=== PATIENT | female | born 1930 | race Caucasian/White ===

== ENCOUNTER 2018-03-18 17:27 | Inpatient (IN) | payer OTHER ==
--- NOTE | 2018-03-18 17:33 | EDPHY ---
H & P Time Seen by Provider: 03/18/18 17:32 HPI/ROS: CHIEF COMPLAINT: Falling and can't walk, bilateral knee pain HISTORY OF PRESENT ILLNESS: Patient was brought in by EMS because of inability to stand or walk. She usually uses a walker but was noted by her caregiver to be less steady today and actually fell twice a first-time landing on her knees, and the 2nd time landing with her chest on her walker. On arrival the patient does not have any complaints except for pain in both knees. She says this happened after the 1st fall, is bilateral, worse with standing or pressure on the knee. Does not radiate. Almost gone or very mild at rest but severe with trying to walk. REVIEW OF SYSTEMS: Eye: no change in vision ENT: no sore throat Cardiac: no chest pain or syncope Pulmonary: no cough or SOB Abdomen: no vomiting, diarrhea, abdominal pain, but decreased oral intake today because she just does not have any appetite. Musculoskeletal: No back or neck pain Skin: Chronic venous stasis changes both lower extremities Neuro: no headache Constitutional: no fever : no urinary symptoms A comprehensive 10 point review of systems is otherwise negative aside from elements mentioned in the history of present illness. PAST MEDICAL HISTORY: Hypertension, per caregiver Social history: Assisted living with caregiver General Appearance: Alert and conversant, cooperative. Eyes: No scleral icterus. ENT, Mouth: Dry mucous membranes Respiratory: Normal respiratory effort, breath sounds equal, lungs are clear to auscultation. No chest wall tenderness. Cardiovascular: Regular rate and rhythm. Gastrointestinal: Abdomen is soft and non tender. Neurological: Alert, face symmetric, normal motor and sensory in extremities. Speech fluent, she does think it is 2087, she knows her name and date. Skin: Bilateral venous stasis changes. Musculoskeletal: No cervical thoracic or lumbar spine tenderness. Normal range of motion of both hips and ankles, and both knees but tenderness to patella palpation on both sides. Psychiatric: Not agitated. Emergency Department course/MDM: Plan for head CT, EKG, chest x-ray and urinalysis. Bilateral knee x-rays. Likely needs admission since she can't walk and is falling. 180: new low density in left parietal lobe, probable subacute infarct, new since 2010, [place]. 1858: Bilateral knee x-ray shows severe osteoarthritis otherwise negative, UTI and subacute ischemic stroke discussed by me in person with a caregiver at this time. Ceftriaxone 1 g IV, admission on monitor for stroke workup. 2010: Creatinine 1.4, acute kidney injury, normal saline 1 L IV ordered. Constitutional: Initial Vital Signs Temperature (C) 37.2 C 03/18/18 17:30 Heart Rate 87 03/18/18 17:30 Respiratory Rate 18 03/18/18 17:30 Blood Pressure 96/72 L 03/18/18 17:30 O2 Sat (%) 92 03/18/18 17:30 O2 Delivery Mode Room Air O2 (L/minute) 92 Allergies/Adverse Reactions: bacitracin [Bacitracin] Allergy (Intermediate, Verified 11/20/10 10:29) RASH/SKIN DOESN'T HEAL morphine [Morphine] Allergy (Unknown, Verified 11/20/10 10:29) SKIN "CRAWLS" Home Medications: Medication Instructions Recorded Bimatoprost 0.01% [Lumigan 0.01% 1 drop EACHEYE HS 03/18/18 (*)] Cholecalciferol Vit D3 [Vitamin D3 5,000 units PO DAILY 03/18/18 (*)] Furosemide [Lasix 20 MG (*)] 40 mg PO DAILY 03/18/18 Herbals/Supplements -Info Only 1 dose PO DAILY 03/18/18 Potassium Chloride [Klor-Con 10] 20 meq PO DAILY 03/18/18 Valsartan [Diovan (*)] 80 mg PO BID 03/18/18 Medical Decision Making - Diagnostics EKG Interpretation: 12-lead EKG interpreted by me; official reading is in trace master. My interpretation is sinus rhythm with LVH and inferior Q-waves noted. Probable old inferior infarct. Imaging Results: Imaging Impressions Knee X-Ray 03/18/18 17:43 Impression: 1. No acute osseous abnormality seen associated with the right and left knees. 2. Marked degenerative joint disease medial knee joint bilaterally with moderate degenerative joint disease at the patellofemoral joint bilaterally. 3. Small effusion suprapatellar bursa bilaterally. Knee X-Ray 03/18/18 17:43 Impression: 1. No acute osseous abnormality seen associated with the right and left knees. 2. Marked degenerative joint disease medial knee joint bilaterally with moderate degenerative joint disease at the patellofemoral joint bilaterally. 3. Small effusion suprapatellar bursa bilaterally. Chest X-Ray 03/18/18 17:44 Impression: 1. No active cardiopulmonary disease appreciated. 2. Hyperexpanded lungs suggestive of underlying COPD. 3. Stable marked compression of T8. Head CT 03/18/18 17:44 Impression: 1. Subacute/chronic left posterior parietal area of developing encephalomalacia consistent with a white matter infarction. 2. Otherwise stable elderly head CT. Results called to Dr. Yvon Rubi at 6:08 PM General information for patients regarding this examination can be found at [email or web address] If you have questions or comments about this report, please contact me at (hospital) or [phone] (cell). Imaging: Discussed imaging studies w/ housecalls nurse Radiologist Differential Diagnosis: Differential for weakness considered including but not limited to stroke, ACS, UTI, other metabolic. Consult/Admit Bed Type: [facility], [facility] 1940 - Data Points Laboratory Results: Laboratory Results 03/18/18 18:45 03/18/18 18:45 03/18/18 03/18/18 03/18/18 18:45 18:45 18:45 WBC 11.48 10^3/uL H 10^3/uL (3.80-9.50) RBC 5.14 10^6/uL 10^6/uL (4.18-5.33) Hgb 16.0 g/dL g/dL (12.6-16.3) Hct 47.2 % H % (38.0-47.0) MCV 91.8 fL fL (81.5-99.8) MCH 31.1 pg pg (27.9-34.1) MCHC 33.9 g/dL g/dL (32.4-36.7) RDW 13.6 % % (11.5-15.2) Plt Count 186 10^3/uL 10^3/uL (150-400) MPV 10.8 fL fL (8.7-11.7) Neut % (Auto) 82.7 % H % (39.3-74.2) Lymph % (Auto) 7.4 % L % (15.0-45.0) [place] % (Auto) 9.3 % % (4.5-13.0) Eos % (Auto) 0.1 % L % (0.6-7.6) Baso % (Auto) 0.2 % L % (0.3-1.7) Nucleat RBC Rel Count 0.0 % % (0.0-0.2) Absolute Neuts (auto) 9.49 10^3/uL H 10^3/uL (1.70-6.50) Absolute Lymphs (auto) 0.85 10^3/uL L 10^3/uL (1.00-3.00) Absolute Monos (auto) 1.07 10^3/uL H 10^3/uL (0.30-0.80) Absolute Eos (auto) 0.01 10^3/uL L 10^3/uL (0.03-0.40) Absolute Basos (auto) 0.02 10^3/uL 10^3/uL (0.02-0.10) Absolute Nucleated RBC 0.00 10^3/uL 10^3/uL (0-0.01) Immature Gran % 0.3 % % (0.0-1.1) Immature Gran # 0.04 10^3/uL 10^3/uL (0.00-0.10) Sodium 136 mEq/L mEq/L (135-145) Potassium 3.2 mEq/L L mEq/L (3.3-5.0) Chloride 95 mEq/L L mEq/L (97-110) Carbon Dioxide 24 mEq/l mEq/l (22-31) Anion Gap 17 mEq/L H mEq/L (8-16) BUN 41 mg/dL H mg/dL (7-23) Creatinine 1.4 mg/dL H mg/dL (0.6-1.0) Estimated GFR 36 Glucose 154 mg/dL H mg/dL (70-100) Calcium 9.0 mg/dL mg/dL (8.5-10.4) Procalcitonin 2.63 ng/mL H ng/mL (0.02-0.10) Urine Color Urine Appearance Urine pH Ur Specific [place] Urine Protein Urine Ketones Urine Blood Urine Nitrate Urine Bilirubin Urine Urobilinogen Ur Leukocyte Esterase Urine RBC Urine WBC Ur Epithelial Cells Urine Bacteria Urine Mucus Urine Glucose 03/18/18 18:15 WBC RBC Hgb Hct MCV MCH MCHC RDW Plt Count MPV Neut % (Auto) Lymph % (Auto) [place] % (Auto) Eos % (Auto) Baso % (Auto) Nucleat RBC Rel Count Absolute Neuts (auto) Absolute Lymphs (auto) Absolute Monos (auto) Absolute Eos (auto) Absolute Basos (auto) Absolute Nucleated RBC Immature Gran % Immature Gran # Sodium Potassium Chloride Carbon Dioxide Anion Gap BUN Creatinine Estimated GFR Glucose Calcium Procalcitonin Urine Color ARMANDO Urine Appearance TURBID Urine pH 5.0 (5.0-7.5) Ur Specific [place] 1.015 (1.002-1.030) Urine Protein 2+ H (NEGATIVE) Urine Ketones NEGATIVE (NEGATIVE) Urine Blood 2+ H (NEGATIVE) Urine Nitrate NEGATIVE (NEGATIVE) Urine Bilirubin NEGATIVE (NEGATIVE) Urine Urobilinogen 2.0 EU H EU (0.2-1.0) Ur Leukocyte Esterase 3+ H (NEGATIVE) Urine RBC 50-182 /hpf H /hpf (0-3) Urine WBC 50-182 /hpf H /hpf (0-3) Ur Epithelial Cells 2+ /lpf H /lpf (NONE-1+) Urine Bacteria 4+ /hpf H /hpf (NONE SEEN) Urine Mucus 1+ /lpf /lpf (NONE-1+) Urine Glucose NEGATIVE (NEGATIVE) Medications Given: Acetaminophen (Tylenol 650/20.3ml Oral Liquid) 650 mg PO Q4 PRN PRN Reason: Pain, Mild/Fever, Can Take PO Stop: 09/15/18 03:44 Last Admin: 03/19/18 03:53 Dose: 650 mg Bimatoprost (Lumigan 0.01%) 1 drops EACHEYE HS [facility] Stop: 09/14/18 20:59 Last Admin: 03/19/18 00:45 Dose: Not Given Heparin Sodium (Porcine) (Heparin Sc Injection) 5,000 unit SC Q8HRS JUAN Stop: 09/14/18 21:59 Last Admin: 03/19/18 00:43 Dose: 5,000 unit Potassium Chloride/Sodium Chloride (Ns W/ 20 Kcl/L) 1,000 mls @ 100 mls/hr IV CONT JUAN Stop: 09/14/18 21:44 Last Admin: 03/19/18 03:41 Dose: 1,000 mls Discontinued Medications Ceftriaxone Sodium/Dextrose (Rocephin 1 Gm (Premix)) 50 mls @ 100 mls/hr IV EDNOW ONE PRN Reason: Protocol Stop: 03/18/18 19:27 Last Admin: 03/18/18 19:10 Dose: 50 mls Sodium Chloride (Ns) 1,000 mls @ 0 mls/hr IV EDNOW ONE; Wide Open PRN Reason: Protocol Stop: 03/18/18 20:10 Last Admin: 03/18/18 20:15 Dose: 1,000 mls Sodium Chloride (Ns) 1,000 mls @ 3,000 mls/hr IV ONCE ONE Stop: 03/18/18 22:03 Last Admin: 03/19/18 00:14 Dose: 1,000 mls Departure - Departure Disposition: [facility] Inpatient Acute Clinical Impression: Subacute left parietal ischemic stroke, bilateral knee contusions, Acute kidney injury UTI (urinary tract infection) Qualifiers: Urinary tract infection type: acute cystitis Hematuria presence: with hematuria Qualified Code(s): N30.01 - Acute cystitis with hematuria Condition: Fair
--- NOTE | 2018-03-18 18:52 | CPEKG ---
Heart Rate: 82 RR Interval: 732 P-R Interval: 192 QRSD Interval: 92 QT Interval: 396 QTC Interval: 463 P Greer: 28 QRS Greer: -22 T Wave Greer: 125 EKG Severity - ABNORMAL ECG - EKG Impression: SINUS RHYTHM EKG Impression: PROBABLE LEFT ATRIAL ABNORMALITY EKG Impression: PROBABLE LEFT VENTRICULAR HYPERTROPHY EKG Impression: PROBABLE INFERIOR INFARCT, OLD EKG Impression: LATERAL LEADS ARE ALSO INVOLVED Electronically Signed By: Yvon Rubi 18-Mar-2018 18:58:02
[2018-03-18 18:59] LABS: PLATELET COUNT 186 10^3/uL (150-400)
[2018-03-18] MEDS ORDERED: NS 1,000 ML IV ONE ×2 (20:09→21:44)
[2018-03-18] MEDS ORDERED: ACETAMINOPHEN 325 MG TAB PO PRN (21:45)
[2018-03-18] MEDS ORDERED: NS W/ 20 KCl/L 1,000 ML IV SCH (21:45)
[2018-03-18] MEDS ORDERED: ONDANSETRON DISINTEGRATING 4 MG TAB PO PRN (21:45)
[2018-03-18] MEDS ORDERED: ONDANSETRON 4 MG/2 ML VIAL IVP PRN (21:45)
[2018-03-18] MEDS ORDERED: PROTOCOL POTASSIUM 1 DOSE MISC PRN (21:47)
[2018-03-18] MEDS ORDERED: PROTOCOL MAGNESIUM 1 DOSE IV PRN (21:47)
--- NOTE | 2018-03-18 22:13 | PDGENHP ---
History and Physical - Chief Complaint weakness - History of Present Illness 87 o female c/o weakness so profound that she cant stand or walk. She usually uses a walker but was noted by her caregiver to be less steady today and actually fell twice a first-time landing on her knees, and the 2nd time landing with her chest on her walker. In the ER she is noted to have bacteriuria, hypotension, and SRIDEVI. She was given NS + Rocephin. She is feeling better. BP is better. Lactic acid nor PC were checked. She denies resp or cv symptoms. She has no focal weakness. A CT Head was checked and its consistent with subacute vs chronic Left Parietal area encephalomalacia. PAST MEDICAL HISTORY: Hypertension, per caregiver Social history: Assisted living with caregiver History Information - Allergies/Home Medication List Allergies/Adverse Reactions: bacitracin [Bacitracin] Allergy (Intermediate, Verified 11/20/10 10:29) RASH/SKIN DOESN'T HEAL morphine [Morphine] Allergy (Unknown, Verified 11/20/10 10:29) SKIN "CRAWLS" Home Medications: Bimatoprost 0.01% [Lumigan 0.01% (*)] 1 drop EACHEYE HS 03/18/18 [Last Taken Unknown] Cholecalciferol Vit D3 [Vitamin D3 (*)] 5,000 units PO DAILY 03/18/18 [Last Taken Unknown] Furosemide [Lasix 20 MG (*)] 40 mg PO DAILY 03/18/18 [Last Taken Unknown] Herbals/Supplements -Info Only 1 dose PO DAILY 03/18/18 [Last Taken Unknown] Potassium Chloride [Klor-Con 10] 20 meq PO DAILY 03/18/18 [Last Taken Unknown] Valsartan [Diovan (*)] 80 mg PO BID 03/18/18 [Last Taken Unknown] I have personally reviewed and updated: medical history, social history - Social History Smoking Status: Never smoked Review of Systems Review of Systems: ROS: 10pt was reviewed & negative except for what was stated in HPI & below Physical Exam Physical Exam: Temp Pulse Resp BP Pulse Ox 36.7 C 68 17 127/63 H 96 03/18/18 21:14 03/18/18 21:14 03/18/18 21:14 03/18/18 21:14 03/18/18 21:14 Constitutional: not in pain Eyes: PERRL Ears, Nose, Mouth, Throat: dry mucous membranes Cardiovascular: regular rate and rhythym, No edema Respiratory: no respiratory distress, no rales or rhonchi, clear to auscultation Gastrointestinal: normoactive bowel sounds Skin: warm Musculoskeletal: generalized weakness Neurologic: AAOx3 Psychiatric: interacting appropriately, not anxious, not encephalopathic Lymph, Heme, Immunologic: No petechiae Lab Data & Imaging Review 03/18/18 18:45 03/18/18 18:45 WBC 11.48 10^3/uL (3.80-9.50) H 03/18/18 18:45 RBC 5.14 10^6/uL (4.18-5.33) 03/18/18 18:45 Hgb 16.0 g/dL (12.6-16.3) 03/18/18 18:45 Hct 47.2 % (38.0-47.0) H 03/18/18 18:45 MCV 91.8 fL (81.5-99.8) 03/18/18 18:45 MCH 31.1 pg (27.9-34.1) 03/18/18 18:45 MCHC 33.9 g/dL (32.4-36.7) 03/18/18 18:45 RDW 13.6 % (11.5-15.2) 03/18/18 18:45 Plt Count 186 10^3/uL (150-400) 03/18/18 18:45 MPV 10.8 fL (8.7-11.7) 03/18/18 18:45 Neut % (Auto) 82.7 % (39.3-74.2) H 03/18/18 18:45 Lymph % (Auto) 7.4 % (15.0-45.0) L 03/18/18 18:45 [place] % (Auto) 9.3 % (4.5-13.0) 03/18/18 18:45 Eos % (Auto) 0.1 % (0.6-7.6) L 03/18/18 18:45 Baso % (Auto) 0.2 % (0.3-1.7) L 03/18/18 18:45 Nucleat RBC Rel Count 0.0 % (0.0-0.2) 03/18/18 18:45 Absolute Neuts (auto) 9.49 10^3/uL (1.70-6.50) H 03/18/18 18:45 Absolute Lymphs (auto) 0.85 10^3/uL (1.00-3.00) L 03/18/18 18:45 Absolute Monos (auto) 1.07 10^3/uL (0.30-0.80) H 03/18/18 18:45 Absolute Eos (auto) 0.01 10^3/uL (0.03-0.40) L 03/18/18 18:45 Absolute Basos (auto) 0.02 10^3/uL (0.02-0.10) 03/18/18 18:45 Absolute Nucleated RBC 0.00 10^3/uL (0-0.01) 03/18/18 18:45 Immature Gran % 0.3 % (0.0-1.1) 03/18/18 18:45 Immature Gran # 0.04 10^3/uL (0.00-0.10) 03/18/18 18:45 VBG Lactic Acid 1.5 mmol/L (0.7-2.1) 03/18/18 21:24 Sodium 136 mEq/L (135-145) 03/18/18 18:45 Potassium 3.2 mEq/L (3.3-5.0) L 03/18/18 18:45 Chloride 95 mEq/L (97-110) L 03/18/18 18:45 Carbon Dioxide 24 mEq/l (22-31) 03/18/18 18:45 Anion Gap 17 mEq/L (8-16) H 03/18/18 18:45 BUN 41 mg/dL (7-23) H 03/18/18 18:45 Creatinine 1.4 mg/dL (0.6-1.0) H 03/18/18 18:45 Estimated GFR 36 03/18/18 18:45 Glucose 154 mg/dL (70-100) H 03/18/18 18:45 Calcium 9.0 mg/dL (8.5-10.4) 03/18/18 18:45 Procalcitonin 2.63 ng/mL (0.02-0.10) H 03/18/18 18:45 Urine Color ARMANDO 03/18/18 18:15 Urine Appearance TURBID 03/18/18 18:15 Urine pH 5.0 (5.0-7.5) 03/18/18 18:15 Ur Specific [place] 1.015 (1.002-1.030) 03/18/18 18:15 Urine Protein 2+ (NEGATIVE) H 03/18/18 18:15 Urine Ketones NEGATIVE (NEGATIVE) 03/18/18 18:15 Urine Blood 2+ (NEGATIVE) H 03/18/18 18:15 Urine Nitrate NEGATIVE (NEGATIVE) 03/18/18 18:15 Urine Bilirubin NEGATIVE (NEGATIVE) 03/18/18 18:15 Urine Urobilinogen 2.0 EU (0.2-1.0) H 03/18/18 18:15 Ur Leukocyte Esterase 3+ (NEGATIVE) H 03/18/18 18:15 Urine RBC 50-182 /hpf (0-3) H 03/18/18 18:15 Urine WBC 50-182 /hpf (0-3) H 03/18/18 18:15 Ur Epithelial Cells 2+ /lpf (NONE-1+) H 03/18/18 18:15 Urine Bacteria 4+ /hpf (NONE SEEN) H 03/18/18 18:15 Urine Mucus 1+ /lpf (NONE-1+) 03/18/18 18:15 Urine Glucose NEGATIVE (NEGATIVE) 03/18/18 18:15 Assessment & Plan Assessment: #Possible sepsis/early sepsis, urinary source, given Leukocytosis, hypotension, and acute kidney injury #UTI #Hypokalemia #Hypotension #Acute Kidney Injury #Hx of HTN #AMS, acute encephalopathy, resolving #?subacute vs chronic encephalomalacia. Per the ED, Neuro consulted for possible acute stroke. Will await reccs, but her mentations and weakness are likely the result of infection and dehydration Plan: -more IVF now -check PC and lactic acid -await urine culture -check blood cultures, these will be done after abx have been administered -cont Rocephin -PT -replace K total critical care time in this patient with hypotension likely due to sepsis and kidney injury requiring further IV fluids is 55 minutes
[2018-03-19] MEDS: HEPARIN 5,000 UNIT/0.5 ML INJ SC SCH ×4 (00:43→22:02)
[2018-03-19] MEDS: BIMATOPROST 0.01% 2.5 ML OPHT.BTL EACHEYE SCH ×2 (00:45→22:06)
[2018-03-19] MEDS: ACETAMINOPHEN 650 MG/20.3 ML UDCUP PO PRN ×2 (03:53→10:50)
[2018-03-19 05:30] LABS: PLATELET COUNT 141 10^3/uL (150-400)
[2018-03-19] MEDS ORDERED: POTASSIUM CL 10 MEQ TAB PO ONE ×2 (08:17→10:45)
--- NOTE | 2018-03-19 09:45 | HOSPPROG ---
Hospitalist Progress Note Assessment/Plan: #Possible sepsis/early sepsis, urinary source, given Leukocytosis, hypotension, and acute kidney injury on presentation -resolving -decrease IVF today -awaiting cultures #UTI -awaiting cultures -cont Rocephin #Hypokalemia -replace per protocol #Hypotension, resolved #Acute Kidney Injury, resolved with IVF #Hx of HTN, hold BP meds today #AMS, acute encephalopathy, resolved -at baseline #?subacute silent stroke vs chronic encephalomalacia. -start baby aspirin -telemetry -pt to decide on whether they want additional testing -Neuro following, thanks #Venous insufficiency -compression stocking -f/u as outpatient PT/OT Heparin for DVT proph Keep inpatient today Hopeful d/c soon Subjective: no cp or sob. feels better. mentation back to baseline. Objective: Vital Signs Temp Pulse Resp BP Pulse Ox 36.7 C 71 16 129/63 H 96 03/19/18 08:00 03/19/18 08:00 03/19/18 08:00 03/19/18 08:00 03/19/18 08:00 Laboratory Results 03/19/18 04:28 03/19/18 04:28 03/18/18 03/19/18 03/20/18 05:59 05:59 05:59 Intake Total 1550 Output Total 450 300 Balance 1100 -300 - Physical Exam Constitutional: no apparent distress Eyes: PERRL, EOMI Ears, Nose, Mouth, Throat: dry mucous membranes Cardiovascular: regular rate and rhythym, No edema Respiratory: no respiratory distress, no rales or rhonchi, clear to auscultation Gastrointestinal: normoactive bowel sounds Skin: warm Musculoskeletal: generalized weakness Neurologic: AAOx3 Psychiatric: interacting appropriately, not anxious, not encephalopathic Lymph, Heme, Immunologic: No petechiae ICD10 Worksheet Patient Problems: Problems Problem Status Onset Acute kidney injury Acute UTI (urinary tract infection) Acute
--- NOTE | 2018-03-19 10:30 | GCON ---
[f rep st] CONSULTATION NEUROLOGY CONSULT. REFERRING PHYSICIAN: Kwabena Reveles MD CHIEF COMPLAINT: Abnormal head CT. HISTORY OF PRESENT ILLNESS: The patient is a very pleasant 87-year-old lady who developed significant generalized weakness and fatigue over the last 2 or 3 days with loss of balance and falling. She came to the emergency department and was found to have a significant UTI with acute kidney injury. She received fluids and antibiotics and is improving now. In the course of this workup, she had a head CT which showed a chronic versus subacute infarct in the left parietal white matter. This is new since her previous and most recent head CT in 2010, 7 years ago. She has had no symptoms referable to this stroke. Specifically, no right-sided numbness, weakness, neglect, or other focal symptoms. She has a nonfocal exam now. For past medical history, social history, home medications, allergies, see Dr. Reveles's H and P. PHYSICAL EXAMINATION: VITAL SIGNS: 129/63, temperature 36.7, respirations 16. GENERAL: Generally the patient is awake and alert. No acute distress. NEURO : She is lucid. She has no aphasia. Cranial nerve exam normal. Facial strength and sensation. Motor exam she has normal strength and tone throughout. No focal weakness. Sensory exam normal light touch in all 4 extremities, no sensory extinction. Coordination is unremarkable in the upper extremities. IMPRESSION AND PLAN: 1. Abnormal head CT. 2. Urinary tract infection. The patient's head CT shows a chronic versus subacute left parietal white matter infarction. She has had no symptoms referable to this imaging finding. Therefore, this could be considered a silent cerebral infarction. The age is indeterminate. We had a long discussion this morning with the patient and her daughter, Sandy, regarding the head CT finding and the implications. Specifically, we discussed that she appears to have had a left hemisphere stroke at some point in the last weeks to months perhaps. She has had no symptoms referable to this event. We discussed the patient's philosophy overall health status and light of what kind of workup that we had done. Specifically, I discussed that the standard approach would be an echocardiogram, carotid imaging and prolonged EKG monitoring to screen for paroxysmal atrial fibrillation. We also discussed that the actionable treatments from these testings are typically possible carotid endarterectomy if there is significant left ICA stenosis or oral anticoagulation, if she had atrial fibrillation, for example. This event occurred while not on any anti-platelet therapy. Therefore, I have recommended at the minimum, aspirin 81 mg daily. We discussed potential risks, benefits, and alternatives of antiplatelet therapy. I also offered the above testing to workup the stroke as described. The patient is not sure if she wants to pursue with any testing as she is not sure she would ever want to have a carotid endarterectomy or oral anticoagulation. They asked for more time to think about testing or not. This is reasonable. They will let their hospitalist now before discharge whether they would like to pursue testing which would be echocardiogram, carotid ultrasound, an outpatient 30 day event monitor with Cardiology. She has agreed to go on aspirin in any case. If they pursue tests and there are any questions or abnormal findings, please contact Neurology service for further recommendations. Otherwise, we will continue to follow up p.r.n. I also offered to see them as an outpatient if they wish to have more time to discuss testing or not. They will consider all these options. They were also counseled at great length regarding the risks, benefits and alternatives of not pursuing testing now - including the risk of recurrent stroke with the associated morbidity and mortality. Seventy minutes floor time reviewing previous and current inpatient records, direct counseling with the patient and coordination of care. /[id number]/MODL MTDD
--- NOTE | 2018-03-19 10:52 | PDMN ---
Medical Necessity Medical necessity: Pt meets IP criteria per MD; est los >2 mn for eval/tx of profound weakness w/inability to stand or walk, falls, leukocytosis, hypokalemia , hypotension, acute kidney injury, UTI & encephalopathy; r/o sepsis; requiring further workup/monitoring, IVFs, IV abx & therapy; comorbid advanced age & HTN; per H&P & order 03/18/18
[2018-03-19] MEDS: ASPIRIN 81 MG CHEWABLE TAB PO SCH (10:55)
[2018-03-19] MEDS: CHOLECALCIFEROL VIT D3 2,000 UNITS TAB/CAP PO SCH (10:59)
[2018-03-19] MEDS ORDERED: POTASSIUM CL 20 MEQ/15 ML UDCUP PO ONE ×2 (11:00→11:45)
[2018-03-19] MEDS ORDERED: FUROSEMIDE 20 MG/2 ML VIAL IV ONE ×2 (14:15→16:30)
--- NOTE | 2018-03-19 14:49 | ASMTCMCOM ---
CM Note CM Note Notes: Pt in for UTI with acute kidney injury, knee contusions and found to have subacute ischemic stroke. Neurology consulting, pt and family deciding if they want stroke workup. Pt resides at [facility] with private caregivers. PT rec SNF. Pt wants to go to [facility], her daughter is reaching out to staff about bed availability. This CM also sent FM a SNF referral in [employer] and left a voicemail for Cheryl in admissions to see if there will be bed availability. CM to follow. Date Signed: 03/19/2018 02:48 PM Electronically Signed By:SONIDO Fonseca
--- NOTE | 2018-03-19 16:39 | ASMTCMCOM ---
CM Note CM Note Notes: Cheryl at [facility] report they are very tight on beds and will not know if they will have a bed for pt until Thursday. Updated pt and dghtr [facility]. [facility] spoke with [facility] staff Kwan who recommend (if no health care bed available) home with [facility] until there is a health care bed available. Date Signed: 03/19/2018 04:38 PM Electronically Signed By:SONIDO Fonseca
[2018-03-19] MEDS ORDERED: hydrALAZINE 20 MG/ML VIAL IVP PRN (22:12)
[2018-03-19] MEDS ORDERED: POTASSIUM CL 20 MEQ TAB PO ONE (22:59)
[2018-03-20] MEDS: HEPARIN 5,000 UNIT/0.5 ML INJ SC SCH ×3 (05:14→22:05)
[2018-03-20] MEDS ORDERED: POTASSIUM CL 10 MEQ TAB PO ONE ×2 (07:47→20:25)
[2018-03-20] MEDS: ASPIRIN 81 MG CHEWABLE TAB PO SCH (08:42)
[2018-03-20] MEDS: CHOLECALCIFEROL VIT D3 2,000 UNITS TAB/CAP PO SCH (08:42)
[2018-03-20] MEDS: VALSARTAN 80 MG TAB PO SCH ×2 (08:42→22:04)
--- NOTE | 2018-03-20 13:27 | NEUROPROG ---
Assessment: 1. Previous Stroke 2. UTI 25 total minutes floor time; including review of interim history, records, direct counseling and coordination of care. The patient continues to feel better each day with antibiotics and fluids. I followed up today to review the patient's wishes regarding the finding of a previous left hemisphere stroke on head CT, likely an incidental finding. I offered her full workup of stroke including carotid imaging, echocardiogram and ECG monitoring. Patient was not sure and visited with her and her daughter today to see with a decided. The patient is firm that she does not want any further testing for stroke now. She would rather take a baby aspirin daily without any testing. She understands the risks, benefits and alternatives of her choice of declining testing including the risk of stroke/TIA and associated morbidity and mortality. We will sign off and follow up as needed. I left my name and office number in case the need outpatient neurology follow-up. It was a pleasure to me with Riya and her daughter today. Subjective: Feeling better with antibiotics and fluids Objective: Vital Signs Temp Pulse Resp BP Pulse Ox 36.6 C 68 20 143/70 H 92 03/20/18 11:33 03/20/18 11:33 03/20/18 11:33 03/20/18 11:33 03/20/18 11:33 Laboratory Results 03/19/18 04:28 03/20/18 04:35 03/19/18 03/20/18 03/21/18 05:59 05:59 05:59 Intake Total 1550 800 480 Output Total 450 900 Balance 1100 -100 480 Patient is awake and alert She is lucid No aphasia Allergies/Adverse Reactions: bacitracin [Bacitracin] Allergy (Intermediate, Verified 11/20/10 10:29) RASH/SKIN DOESN'T HEAL morphine [Morphine] Allergy (Unknown, Verified 11/20/10 10:29) SKIN "CRAWLS"
--- NOTE | 2018-03-20 15:14 | HOSPPROG ---
Hospitalist Progress Note Assessment/Plan: #Possible sepsis/early sepsis, urinary source, given Leukocytosis, hypotension, and acute kidney injury on presentation -resolving -monitor off IVF today -cont Rocephin, tomorrow will be last day #UTI -cont Rocephin #Hypokalemia -replace per protocol #Hypotension, resolved #Acute Kidney Injury, resolved with IVF #Hx of HTN, restart furosemide soon. cont to hold valsartan #AMS, acute encephalopathy, resolved -at baseline #?subacute silent stroke vs chronic encephalomalacia. -start baby aspirin -telemetry -Neurology is following. The pt has decided against any further screening/ studies #Venous insufficiency -compression stocking -f/u as outpatient PT/OT Heparin for DVT proph Keep inpatient today Hopeful d/c to tomorrow potentially to SNF Subjective: no cp or sob. no n/v. Objective: Vital Signs Temp Pulse Resp BP Pulse Ox 36.6 C 68 20 143/70 H 92 03/20/18 11:33 03/20/18 11:33 03/20/18 11:33 03/20/18 11:33 03/20/18 11:33 Laboratory Results 03/19/18 04:28 03/20/18 04:35 03/19/18 03/20/18 03/21/18 05:59 05:59 05:59 Intake Total 1550 800 480 Output Total 450 900 500 Balance 1100 -100 -20 - Physical Exam Constitutional: no apparent distress Eyes: PERRL, EOMI Ears, Nose, Mouth, Throat: moist mucous membranes, hearing normal, ears appear normal Cardiovascular: regular rate and rhythym Respiratory: no respiratory distress, no rales or rhonchi, reduced air movement Gastrointestinal: normoactive bowel sounds, soft, non-tender abdomen Skin: warm Musculoskeletal: generalized weakness Neurologic: AAOx3 Psychiatric: interacting appropriately, not anxious, not encephalopathic Lymph, Heme, Immunologic: No petechiae ICD10 Worksheet Patient Problems: Problems Problem Status Onset Acute kidney injury Acute UTI (urinary tract infection) Acute
[2018-03-21] MEDS: BIMATOPROST 0.01% 2.5 ML OPHT.BTL EACHEYE SCH (00:15)
[2018-03-21] MEDS: HEPARIN 5,000 UNIT/0.5 ML INJ SC SCH (05:41)
[2018-03-21] MEDS: VALSARTAN 80 MG TAB PO SCH (08:45)
[2018-03-21] MEDS: ASPIRIN 81 MG CHEWABLE TAB PO SCH (08:45)
[2018-03-21] MEDS: CHOLECALCIFEROL VIT D3 2,000 UNITS TAB/CAP PO SCH (08:45)
[2018-03-21 11:29] VITALS: BP 166/77
--- NOTE | 2018-03-21 12:24 | PDIAF ---
- Diagnosis Diagnosis: UTI Code Status: Full Code - Medication Management Discharge Medications: Medications to Continue on Transfer Bimatoprost 0.01% [Lumigan 0.01% (*)] 1 drop EACHEYE HS 03/18/18 [Last Taken Unknown] Cholecalciferol Vit D3 [Vitamin D3 (*)] 5,000 units PO DAILY 03/18/18 [Last Taken Unknown] Herbals/Supplements -Info Only 1 dose PO DAILY 03/18/18 [Last Taken Unknown] Valsartan [Diovan (*)] 80 mg PO BID 03/18/18 [Last Taken Unknown] Aspirin [Aspirin 81mg (*)] 81 mg PO DAILY #30 tab.chew 03/21/18 [Last Taken Unknown] Discharge Medications: Refer to the Discharge Home Medication list for PRN reason. - Orders Services needed: Home Care, Registered Nurse, Certified Cloth Layer, Physical Therapy, Occupational Therapy Home Care Face to Face: I certify that this patient was under my care and that I had the required [id number] encounter meeting the encounter requirements on the discharge day. My findings support the fact that the patient is homebound as defined in Home Care Face to Face Continued: CMS Chapter 7 Medicare Benefits Manual 30.1.1 , The condition of the patient is such that there exists a normal inability to leave home and consequently, leaving home would require a considerable and taxing effort. Diet Recommendation: no restrictions on diet Diet Texture: Regular Texture Diet - Follow Up Care Current Providers and Referrals: Patient,NotPresent [Unknown] - As per Instructions
--- NOTE | 2018-03-21 12:29 | PDDCSUM ---
Discharge Summary Discharge Summary: 87 yo female admitted with sepsis syndrome from urinary source. Treated with IV abx and IVF. Now better. will return home with the plan to transition to SNF when a bed becomes available. There was a question about sub acute and silent stroke. She was started on an aspirin. She chose against further clinical studies to include TTE, carotid imaging. DDx: #Possible sepsis/early sepsis, urinary source, given Leukocytosis, hypotension, and acute kidney injury on presentation -S/P Rocephin and IVF #UTI -treated with 4 days of Rocephin #Hypokalemia -replaced #Hypotension, resolved #Acute Kidney Injury, resolved with IVF #Hx of HTN #AMS, acute encephalopathy, resolved -at baseline #?subacute silent stroke vs chronic encephalomalacia. -start baby aspirin -telemetry -the pt has decided against any further screening/studies #Venous insufficiency -compression stocking -f/u as outpatient Meds: see med rec exam: NAD AAOX3 RRR CTA B S//NT/ND NO LE EDEMA F/U: she will f/u with pcp in one week total time spent on discharge is 35 mins
--- NOTE | 2018-03-21 13:30 | ASMTCMCOM ---
CM Note CM Note Notes: CM spoke with daughter Belkys [phone]. CM spoke with Cheryl @ [facility] [phone], they do not have a bed in the care facility at this time but is hopeful they will be able to get her in this week. Her daughter shares she will be staying with her mom until she is connected to care and will discuss needs with [facility]. The patient will discharge back to home at [facility], CM spoke with Lizzie at [facility], they can start with patient. CM discussed plan with daughter and patient, daughter will transport the patient home and will call [phone]/[facility] to meet them at the car for wheelchair transport to her room. IM delivered, patient signed confirming receipt. Lima RN notified to call report to [facility]. CM available to follow any additional discharge needs. D/C plan: Home to [facility] with [facility] to bridge care until bed opens in SNF with [facility]. Date Signed: 03/21/2018 01:29 PM Electronically Signed By:Allyssa Seals
--- NOTE | 2018-03-21 14:43 | ASDISCHSUM ---
Discharge Information Plan Status:Home with Home Health Medically Cleared to Leave:03/21/2018 Discharge Date:03/21/2018 02:25 PM D/C Disposition:Home Health Service [facility] D/C Disposition:Home, Routine, Self-Care Projected Discharge Date:03/21/2018 11:00 AM Transportation at D/C:Family Discharge Delay Reason: Follow-Up Date:03/21/2018 11:00 AM Discharge Slot:2 - 12:01 pm - 18:00 pm Final Diagnosis:Sepsis syndrome from UTI, acute kidney injury, HTN Placement Information Referral Type:*[facility]NF Referral ID:[id number] Provider Name:[facility] Address 1:[address] Address 2: City:[place] Selection Factors: State:[place] Referral Type:*Home Health Care Services Referral ID:[id number] Provider Name:[facility] Care Address 1:[address] Address 2: City:[place] Selection Factors: State:[place] Patient Contact Information Contact Name:OVI Relationship:Daughter Address:[address] City:[place] Alternate Phone: State/Zip Code:[place] [address] Email: Financial Information Financial Class:Medicare Primary Plan Desc:MEDICARE INPATIENT Primary Plan Number:[id number] Secondary Plan Desc:[facility] [employer] Secondary Plan Number:[id number] Assessment Information LACE LACE Acuity / Level of Answers: Yes Care: Did the patient have an inpatient admission? Comorbidities - select Answers: Other Notes: HTN all that apply # of Emergency department Answers: 1-2 visits in the last 6 months Score: 5 Date Signed: 03/21/2018 02:42 PM Electronically Signed By:Allyssa Seals [facility] CM Progress Note CM Note CM Note Notes: Pt in for UTI with acute kidney injury, knee contusions and found to have subacute ischemic stroke. Neurology consulting, pt and family deciding if they want stroke workup. Pt resides at [facility] with private caregivers. PT rec SNF. Pt wants to go to [facility], her daughter is reaching out to staff about bed availability. This CM also sent a SNF referral in [employer] and left a voicemail for Cheryl in admissions to see if there will be bed availability. CM to follow. Date Signed: 03/19/2018 02:48 PM Electronically Signed By:SONIDO Fonseca [facility] CM Progress Note CM Note CM Note Notes: Cheryl at [facility] report they are very tight on beds and will not know if they will have a bed for pt until Thursday. Updated pt and dghtr Cathy. Rizvi spoke with staff Kwan who recommend (if no health care bed available) home with [facility] until there is a health care bed available. Date Signed: 03/19/2018 04:38 PM Electronically Signed By:SONIDO Fonseca [facility] CM Progress Note CM Note CM Note Notes: CM spoke with daughter Belkys [phone]. CM spoke with Cheryl @ [facility] [phone], they do not have a bed in the care facility at this time but is hopeful they will be able to get her in this week. Her daughter shares she will be staying with her mom until she is connected to care and will discuss needs with [facility]. The patient will [facility] back to [facility] at [facility], CM spoke with Lizzie at [facility], they can start with patient. CM discussed plan with daughter and patient, daughter will transport the patient home and will call [phone]/[facility] to meet them at the car for wheelchair transport to her room. IM delivered, patient signed confirming receipt. Lima RN notified to call report to [facility]. CM available to follow any additional discharge needs. D/C plan: Home to [facility] with [facility] to bridge care until bed opens in SNF with [facility]. Date Signed: 03/21/2018 01:29 PM Electronically Signed By:Allyssa Seals Intervention Information Intervention Type:*IM-Signed Date of Service:03/21/2018 02:42 PM Patient Type:Inpatient Staff Member:Allyssa Seals Hours: Discipline: Severity: Comment:
== END 2018-03-21 14:25 | disposition home health service (06) | DRG 871 ==
LOC: EDUNIT# → F3N 20:30
PROVIDERS: ADMIT Family Medicine; ATTEND Family Medicine
DX: A41.9 Sepsis, unspecified organism (principal); G93.40 Encephalopathy, unspecified; N39.0 Urinary tract infection, site not specified; E87.6 Hypokalemia; N17.9 Acute kidney failure, unspecified; I63.9 Cerebral infarction, unspecified; I10 Essential (primary) hypertension; M17.0 Bilateral primary osteoarthritis of knee; I87.2 Venous insufficiency (chronic) (peripheral); Z91.81 History of falling
CPT/HCPCS: 96374; 97116-GP; 97161-GP; 97530-GP; G8978-GP-CL; G8979-GP-CJ; J0696; J1644; J1940

== ENCOUNTER 2019-01-02 20:25 | Inpatient (IN) | payer OTHER ==
--- NOTE | 2019-01-02 20:25 | EDPHY ---
H & P Time Seen by Provider: 01/02/19 20:26 Constitutional: Initial Vital Signs Temperature (C) 36.2 C 01/02/19 20:31 Heart Rate 114 H 01/02/19 20:31 Respiratory Rate 26 H 01/02/19 20:31 Blood Pressure 134/93 H 01/02/19 20:31 O2 Sat (%) 90 L 01/02/19 20:31 O2 Delivery Mode CPAP O2 (L/minute) 15 Allergies/Adverse Reactions: bacitracin [Bacitracin] Allergy (Intermediate, Verified 01/02/19 20:35) RASH/SKIN DOESN'T HEAL morphine [Morphine] Allergy (Unknown, Verified 01/02/19 20:35) SKIN "CRAWLS" Home Medications: Medication Instructions Recorded Bimatoprost 0.01% [Lumigan 0.01% 1 drop EACHEYE HS 03/18/18 (*)] Cholecalciferol Vit D3 [Vitamin D3 5,000 units PO DAILY 03/18/18 (*)] Herbals/Supplements -Info Only 1 dose PO DAILY 03/18/18 Valsartan [Diovan (*)] 80 mg PO BID 03/18/18 Aspirin [Aspirin 81mg (*)] 81 mg PO DAILY #30 tab.chew 03/21/18 Furosemide 01/02/19 Potassium Chloride 01/02/19 Medical Decision Making - Diagnostics Imaging Results: Imaging Impressions Chest X-Ray 01/02/19 20:28 Impression: Acute congestive heart failure with asymmetric edema versus pneumonia right lower lobe. Imaging: Discussed imaging studies w/ pigs feet cleaner Radiologist, I viewed and interpreted images myself ED Course/Re-evaluation: CHIEF COMPLAINT: Shortness of breath HISTORY OF PRESENT ILLNESS: The patient is an 88 y/o female with a history of CHF arriving via EMS on a CPAP for shortness of breath. EMS was called when the jail staff noted that the patient was exquisitely short of breath. EMS noted that the patient had a wet, blood sputum. The patient was given 1 nitro and had a respiration rate in the 30's after starting the CPAP. No fever, headache, body aches, lightheadedness, chest pain, heart palpitations, shortness of breath, cough, abdominal pain, urinary or bowel complaints, numbness, paresthesias. REVIEW OF SYSTEMS: A comprehensive 10 system review of systems is otherwise negative aside from elements mentioned in the history of present illness and medical decision making. PHYSICAL EXAM: HR, BP, O2 Sat, RR. Temp noted General Appearance: Alert, well hydrated, appropriate, and non-toxic appearing. Head: Atraumatic without scalp tenderness or obvious injury Eyes: Pupils equal, round, reactive to light and accommodation, EOMI, no trauma , no injection. Ears: Clear bilaterally, no perforation, normal landmarks Nose: Atraumatic, no rhinorrhea, clear. Throat: There is no erythema or exudates, no lesions, normal tonsils, mucus membranes moist. Neck: Supple, 2+ carotid upstroke, nontender, no lymphadenopathy. Respiratory: Tachypneic, poor air movement. No retractions, no wheezes, and no accessory muscle use. Cardiovascular: Regular rate and rhythm, no murmurs, rubs, or gallops. Bilateral carotid, radial, dorsalis pedis, and posterior tibial pulses intact. Good capillary refill all extremities. Gastrointestinal: Abdomen is soft, nontender, non-distended, no masses, no rebound, no guarding, no peritoneal signs. Musculoskeletal: Normal active ROM of all extremities, atraumatic. Neurological: Alert, appropriate, and interactive. The patient has normal DTRs and non-focal cranial nerves, motor, sensory, and cerebellar exam. Skin: No rashes, good turgor, no nodules on palpation. Past medical history: Hypertension, macular degeneration, CHF Past surgical history: Denies Family history: Denies Social history: Retired, single, lives in [place] at a shelter home DIAGNOSTICS/PROCEDURES/CRITICAL CARE TIME: EKG: The 12 lead EKG was interpreted by myself as sinus tachycardia with a rate of 106. See hard copy and/or "tracemaster" electronic copy for interpretation. Chest x-ray: CHF exacerbation. DIFFERENTIAL DIAGNOSIS: The differential diagnosis for the patient's shortness of breath and hypoxemia included but was not limited to pneumonia, myocardial infarction, acute mountain sickness, high altitude pulmonary edema, congestive heart failure, and pulmonary embolus. MEDICAL DECISION MAKING: The patient is an 88 y/o female with a history of CHF arriving via EMS on a CPAP for shortness of breath. EMS noted that the patient had a wet, blood sputum. The patient was given 1 nitro and had a respiration rate in the 30's after starting the CPAP. On exam she has poor air movement and is tachypneic. The patient is on 15L on the CPAP and has O2sats around 90. Patient will need to start BiPAP. The respiratory therapist is in the room to help with this. Chest x-ray and labs ordered; 324mg PO Aspirin 2054: I reviewed patient's chest x-ray which reveals a CHF exacerbation, the radiologist agrees. Nitro drip started with 40mg IV Lasix administered after the drip. Patient will also need to be admitted. This patient does not appear to have an infection as she is not febrile and is not tachycardic. We will not start antibiotics as I do not believe she has pneumonia. 2104: I consulted with the hospitalist service, Dr. Hsu accepts this patient for a CHF exacerbation. - Data Points Laboratory Results: Laboratory Results 01/02/19 20:32 01/02/19 20:32 01/02/19 01/02/19 01/02/19 20:34 20:32 20:32 WBC 8.30 10^3/uL 10^3/uL (3.80-9.50) RBC 5.61 10^6/uL H 10^6/uL (4.18-5.33) Hgb 17.2 g/dL H g/dL (12.6-16.3) Hct 53.7 % H % (38.0-47.0) MCV 95.7 fL fL (81.5-99.8) MCH 30.7 pg pg (27.9-34.1) MCHC 32.0 g/dL L g/dL (32.4-36.7) RDW 13.7 % % (11.5-15.2) Plt Count 306 10^3/uL 10^3/uL (150-400) MPV 10.8 fL fL (8.7-11.7) Neut % (Auto) 57.8 % % (39.3-74.2) Lymph % (Auto) 30.1 % % (15.0-45.0) Door % (Auto) 8.1 % % (4.5-13.0) Eos % (Auto) 2.8 % % (0.6-7.6) Baso % (Auto) 0.5 % % (0.3-1.7) Nucleat RBC Rel Count 0.0 % % (0.0-0.2) Absolute Neuts (auto) 4.80 10^3/uL 10^3/uL (1.70-6.50) Absolute Lymphs (auto) 2.50 10^3/uL 10^3/uL (1.00-3.00) Absolute Monos (auto) 0.67 10^3/uL 10^3/uL (0.30-0.80) Absolute Eos (auto) 0.23 10^3/uL 10^3/uL (0.03-0.40) Absolute Basos (auto) 0.04 10^3/uL 10^3/uL (0.02-0.10) Absolute Nucleated RBC 0.00 10^3/uL 10^3/uL (0-0.01) Immature Gran % 0.7 % % (0.0-1.1) Immature Gran # 0.06 10^3/uL 10^3/uL (0.00-0.10) Sodium 138 mEq/L mEq/L (135-145) Potassium 4.3 mEq/L mEq/L (3.5-5.2) Chloride 104 mEq/L mEq/L (97-110) Carbon Dioxide 15 mEq/l L mEq/l (22-31) Anion Gap 19 mEq/L H mEq/L (6-14) BUN 24 mg/dL H mg/dL (7-23) Creatinine 1.0 mg/dL mg/dL (0.6-1.0) Estimated GFR 52 Glucose 213 mg/dL H mg/dL (70-100) Calcium 9.5 mg/dL mg/dL (8.5-10.4) Magnesium 2.3 mg/dL mg/dL (1.6-2.3) POC Troponin I 0.01 ng/mL ng/mL (0.00-0.08) NT-Pro-B Natriuret Pep 502 pg/mL H pg/mL (0-450) Point of Care Test Results: Chemistry 01/02/19 20:34 POC Troponin I 0.01 ng/mL ng/mL (0.00-0.08) Departure - Departure Disposition: [facility] Inpatient Acute Clinical Impression: Shortness of breath CHF exacerbation Qualifiers: Heart failure type: unspecified Qualified Code(s): I50.9 - Heart failure, unspecified Condition: Fair Referrals: Patient,NotPresent [Primary Care Provider] - As per Instructions Report Scribed for: Dany Singer Report Scribed by: Marlene Pineda Date of Report: 01/02/19 Time of Report: 20:27
[2019-01-02] MEDS ORDERED: ASPIRIN 81 MG CHEWABLE TAB PO ONE (20:28)
--- NOTE | 2019-01-02 20:40 | CPEKG ---
Test Reason : OPEN Blood Pressure : / mmHG Vent. Rate : 106 BPM Atrial Rate : 106 BPM P-R Int : 190 ms QRS Dur : 084 ms QT Int : 360 ms P-R-T Axes : 029 -42 084 degrees QTc Int : 479 ms Sinus tachycardia Probable left atrial enlargement Left ventricular hypertrophy Inferior infarct, old Confirmed by Dany Singer ([id number]) on 01/02/2019 8:39:49 PM Referred By: Dany Singer Confirmed By:Dany Singer
[2019-01-02 20:42] LABS: PLATELET COUNT 306 10^3/uL (150-400)
[2019-01-02] MEDS ORDERED: FUROSEMIDE 40 MG/4 ML VIAL IVP ONE (20:58)
[2019-01-02] MEDS ORDERED: NITROGLYCERIN/DEXTROSE 250 ML IV SCH (21:00)
[2019-01-02] MEDS ORDERED: ONDANSETRON 4 MG/2 ML VIAL IVP PRN (21:41)
[2019-01-02] MEDS ORDERED: ONDANSETRON DISINTEGRATING 4 MG TAB PO PRN (21:41)
--- NOTE | 2019-01-02 22:52 | GHP ---
[f rep st] HISTORY AND PHYSICAL DATE OF ADMISSION: 01/02/2019 This patient is a pleasant 88-year-old female with a history of hypertension and glaucoma, who presen ts to the hospital with sudden-onset shortness of breath. She was raising the bar to let friends in through her screen door, and she developed shortness of breath. She did not have chest pain. She do es not have a history of anginal-type symptoms. She takes blood pressure medications in the form of long-acting beta latosha, losartan, as well as a daily aspirin. She has lower extremity edema that i s not new. She was admitted to this hospital about a year ago for a subacute stroke. The patient denies coughing with eating. She denies recent fever or chills, nausea, vomiting, or rosi rrhea. When I speak with her, she has been given Lasix and nitro drip and BiPAP, and she feels signi ficantly better than upon arrival to the emergency department. REVIEW OF SYSTEMS: Complete 10-point review of systems conducted and negative, except as noted in th e HPI. PAST MEDICAL HISTORY: 1. Hypertension. 2. Glaucoma. 3. Constipation. ALLERGIES: Bacitracin, morphine. MEDICATIONS: Home medications are: PreserVision, mag citrate, tumeric root extract, aspirin, bimato prost eye drops, vitamin D3, losartan, metoprolol succinate, timolol eye drops. SOCIAL HISTORY: No tobacco; quit smoking in 1986. Lives alone with a caregiver. FAMILY HISTORY: Her parents are . PHYSICAL EXAMINATION: VITALS: Present vitals, temp 36.2, blood pressure 134/93. Pulse 114, now abo ut 100. Breathing 26 times a minute. 90% on 15 L. She is now 97% on BiPAP. GENERAL: No acute dis tress. HEENT: Sclerae anicteric. Oropharynx clear. Mucous membranes are dry. NECK: Supple. It is difficult to tell JVD in the setting of BiPAP, but she does have hepatojugular reflux. LUNGS: Ex am shows crackles senior living up the lung pop bilaterally. HEART: S1, S2. Regular. ABDOMEN: Soft, nontender, nondistended. EXTREMITIES: Lower extremities show 2+ edema bilaterally. Calves are non tender. SKIN: Without rash. NEUROLOGIC: Exam is nonfocal. Chest x-ray, interpreted by me, shows acute congestive heart failure with asymmetric edema versus pne umonia in the right lower lobe. EKG shows sinus at 106 with left axis deviation, LVH, normal intervals. There are no ST- or T-wave c hanges. When compared with prior, her EKG is largely unchanged. [place] is a little more leftward now. I discussed the case with Dr. Dany Singer. Labs: White count 8.3, hematocrit 53.7, platelets are 306,000. Sodium 138, potassium 4.3, chloride 104, bicarb 14. Anion gap is elevated at 19, BUN 24, creatinine 1.0, glucose 213. BMP is 502, which is a high value for her. Troponin 0.01. ASSESSMENT AND PLAN: 88-year-old female presents with acute shortness of breath and presentation mos t consistent with congestive heart failure. 1. Acute congestive heart failure: I believe this patient has acute congestive heart failure on the basis of elevated BNP, response to therapy such as nitroglycerin and bilevel, in the absence of leuk ocytosis, sputum, fever, chills. Will continue her nitroglycerin drip, write her for Lasix q.6, cycl e her troponins. Order an echocardiogram for the morning. Notably, she has no long-acting beta bloc ker and an ARB already. 2. Question pneumonia: I think the patient does not have pneumonia. A procalcitonin test could be used to differentiate, but I find those results misleading frequently, so we will hold off on that an d follow her clinically. 3. Anion gap acidosis with a modestly elevated BUN: This is consistent with an effective prerenal s wilkerson of congestive heart failure. Will follow. 4. She will have labs repeated in about 5 hours for her morning labs. 5. Hypertension: Continue her medicines. 6. Glaucoma: Continue her eye drops. 7. Constipation: Continue her twice-daily mag citrate. DISPOSITION: Step-down unit inpatient. /[id number]/MODL
[2019-01-03] MEDS: FUROSEMIDE 40 MG/4 ML VIAL IVP SCH ×3 (00:48→14:56)
[2019-01-03] MEDS: ACETAMINOPHEN 325 MG TAB PO PRN (04:02)
[2019-01-03 05:26] LABS: PLATELET COUNT 247 10^3/uL (150-400)
[2019-01-03 05:34] LABS: INR 1.09 (0.83-1.16); PROTIME(PATIENT) 13.7 SEC (12.0-15.0)
--- NOTE | 2019-01-03 06:47 | PDMN ---
Medical Necessity Medical necessity: MCG M190 heart failure: 88 yo F presents with SOB, tachycardia, CXR shows acute CHF with asymmetric edema vs PNA in RLL., RR 26 , BNP elevated, anion gap acidosis , O2 97% on BiPAP- anticipate > 2 MN ongoing med nec care; nitro drip, Lasix,
[2019-01-03] MEDS ORDERED: COD LIVER OIL PO SCH (09:00)
[2019-01-03] MEDS ORDERED: TURMERIC ROOT EXTRACT 500 MG PO SCH (09:00)
[2019-01-03] MEDS ORDERED: VIT E ACET PO SCH (09:00)
[2019-01-03] MEDS ORDERED: [UNRECOGNIZED DRUG - OTHER] PO SCH (09:00)
[2019-01-03] MEDS ORDERED: UBIDECARENONE PO SCH (09:00)
[2019-01-03] MEDS ORDERED: MAGNESIUM CITRATE 125 MG PO SCH (09:00)
[2019-01-03] MEDS ORDERED: Herbals/Supplements -Info Only PO SCH (09:00)
--- NOTE | 2019-01-03 09:47 | HOSPPROG ---
Hospitalist Progress Note Assessment/Plan: Acute hypoxemic respiratory failure 2/2 acute HF - new onset. Still with crackles on exam, O2 needs 10 LPM from 15 LPM overnight. Query an acute coronary event with sudden onset symptoms, rising trop and ?anterior ST elevation on presenting EKG. -repeat EKG now: ST segments normal, no acute ischemia -repeat trop (up to 0.674, was neg on arrival, cont to trend) -d/c nitro gtt due to hypotension -cont diuresis, decreased IV Lasix to BID -echo pending, eval for WMA (discussed with Dr. Sethi, new subtle apical hypokinesis, mild LVH) -cardiology consulted, may warrant cath vs nuc stress test, defer anticoagulation for now -cont ASA, BB -check lipid status Hypertension - BP low this am, ntg held -cont low dose toprol Glaucoma - cont home meds Full code DVT PPLX - Lovenox Dispo - cont inpt Subjective: Pt feels better. Breathing is improved. She denies chest pain. No palpitations. Still weak. No abdominal pain, N/V, eating breakfast up in chair. Excellent uop with IV lasix Objective: Vital Signs Temp Pulse Resp BP Pulse Ox 36.5 C 82 21 H 117/72 95 01/02/19 22:01 01/03/19 08:39 01/03/19 08:39 01/03/19 08:39 01/03/19 08:39 Laboratory Results 01/03/19 04:50 01/03/19 04:50 01/02/19 01/03/19 01/04/19 05:59 05:59 05:59 Output Total 725 500 Balance -725 -500 PT 13.7 SEC (12.0-15.0) 01/03/19 04:50 INR 1.09 (0.83-1.16) 01/03/19 04:50 - Physical Exam Constitutional: no apparent distress Eyes: PERRL Ears, Nose, Mouth, Throat: moist mucous membranes Cardiovascular: regular rate and rhythym Respiratory: no respiratory distress, inspiratory crackles Gastrointestinal: normoactive bowel sounds, soft, non-tender abdomen Skin: warm Musculoskeletal: full muscle strength Neurologic: AAOx3 Psychiatric: interacting appropriately ICD10 Worksheet Patient Problems: Problems Problem Status Onset CHF exacerbation Acute Shortness of breath Acute Acute kidney injury Acute UTI (urinary tract infection) Acute
[2019-01-03] MEDS ORDERED: PROTOCOL POTASSIUM 1 DOSE MISC PRN (09:48)
[2019-01-03] MEDS: LOSARTAN POTASSIUM 50 MG TAB PO SCH (09:54)
[2019-01-03] MEDS: ASPIRIN 81 MG CHEWABLE TAB PO SCH (09:56)
[2019-01-03] MEDS: PRESERVISION AREDS2 FORMULA EYE VIT 1 EACH PO SCH (09:56)
[2019-01-03] MEDS: METOPROLOL SUCCINATE XR 25 MG TAB PO SCH (09:56)
[2019-01-03] MEDS: ENOXAPARIN 30 MG/0.3 ML SYR SC SCH (09:57)
[2019-01-03] MEDS ORDERED: POTASSIUM CL 10 MEQ TAB PO ONE (09:57)
[2019-01-03] MEDS: CHOLECALCIFEROL VIT D3 1,000 UNITS TAB PO SCH (09:57)
[2019-01-03] MEDS: TIMOLOL 0.5% 15 ML OPHT.BTL EACHEYE SCH (10:00)
--- NOTE | 2019-01-03 11:00 | ECHO ---
[email or web address] [address] [address] Main: [phone] Echocardiography Examination Transthoracic Name: LITTLE BONILLA MR#: [id number] Study Date: 01/03/2019 Study Time: 07:52 AM Date of : 1930 Age: 88 year(s) Height: ( ) Weight: ( ) BSA: Gender: Female Examination: Echo Contrast: Image Quality: Adequate Rhythm: Heart Rate: BP: 88 mmHg/42 mmHg Indication: new chf Procedure Staff Referring Physician: Nurse First Assist: Angie Barroso RDCS Reading Physician: Humera Sethi MD Requesting Provider: Ordering Physician: Lg Hsu Indication: new chf Measurements Chambers AV/MV Label Value Normal Value Label Value Normal Value LVOTd 1.8 cm (1.8cm - 2cm) AR PHT 0.46 s LVOT VTI 22.2 cm (18cm - 22cm) AR PHT 458 ms LVDd, 2D 3.1 cm (3.9cm - 5.3cm) AR Vmax 2.92 m/s LVDs, 2D 2.1 cm (2.1cm - 4cm) AV PGmax 7 mmHg IVSd, 2D 1.8 cm (0.6cm - 1.1cm) AV PGmean 5 mmHg LVPWd, 2D 1.3 cm AV Vmax 0.13 m/s LVEF, BP 61 % (55% - 70%) GEOVANI (VTI) 2.1 cm2 LVEF, 2D 60 % (54% - 74%) MV E Vmax 0.59 m/s LVOT PGmean 4 mmHg MV A Vmax 1.16 m/s LVOT Vmean 0.99 m/s MV E/A 0.51 RVDd, 2D 3 cm (1.9cm - 3.8cm) MV E/E' lateral 11.2 LA Volume, BP 37 ml (22ml - 52ml) MV E/E' septal 12.8 (0.45 - 1.25) LADs, 2D 3.4 cm (2.7cm - 3.8cm) MV DT 197 ms Additional Vessels MV E' septal 0.05 m/s Label Value Normal Value MV PHT 0.06 s AoAsc 3.9 cm MVA PHT 4 cm2 AoRoot, 2D 3.2 cm (1.4cm - 2.6cm) MV E' lateral 0.05 m/s MV E/E' mean 11.8 MV PHT 55 ms Patient: LITTLE BONILLA Study Date: 01/03/2019 Page 1 of 3 07:52 AM MV E' mean 0.05 m/s TV/PV Label Value Normal Value PV PGmax 6 mmHg PV Vmax, Caliper 1.25 m/s (0.6m/s - 0.9m/s) Conclusions 1. There is moderate posterior wall hypertrophy and severe septal hypertrophy. The left ventricular cavity is normal in size. There is overall normal LV systolic function with an ejection fraction of 61%. There is mild apical hypokinesis. 2. The right ventricle is normal in size and systolic function 3. Normal biatrial size. 4. Moderate aortic regurgitation 5. Mild mitral regurgitation. 6. Trivial tricuspid regurgitation. Unable to estimate PA systolic pressure. 7. Mild dilation of the ascending aorta at 3.9 cm 8. Compared directly to 04/2018 subtle apical hypokinesis now noted. Findings Left Ventricle: Left ventricle is normal in size. Normal global systolic left ventricular function. The ejection fraction, measured by Simpsons method, is 61 %. EF range is estimated at 55 % - 60 %. There is asymmetrical septal hypertrophy. Cannot determine LAP and Diastolic Dysfunction Grade. Apical septal hypokinesis. Right Ventricle: Normal size right ventricle. Right ventricular systolic function is normal. Left Atrium: *No height/weight available for LA index Right Atrium: The right atrium is normal in size. Mitral Valve: Mitral valve appears structurally normal. Mild mitral regurgitation. No mitral valve stenosis. Aortic Valve: Aortic leaflets are structurally normal. Moderate aortic regurgitation is present. There is no aortic stenosis. Tricuspid Valve: Tricuspid valve leaflets are structurally normal. Trivial tricuspid regurgitation. No tricuspid valve stenosis. Pulmonary artery pressure cannot be assessed due to inadequate TR signal. Pulmonic Valve: Pulmonic leaflets are structurally normal. Aorta: The aortic root size in 2D measures 3.2 cm. The ascending aorta measures 3.9 cm. Mild dilatation of the ascending aorta. Aorta Measurements AoRoot, 2D is 3.2 cm. Pericardium: No pericardial effusion. Exam Details Procedure Ordered: Echo Procedure Status: Routine study Image Quality: Adequate Facility Location: Cardiac Echo 1 Patient: LITTLE BONILLA Study Date: 01/03/2019 Page 2 of 3 07:52 AM (No Signature Object) Patient: LITTLE BONILLA Study Date: 01/03/2019 Page 3 of 3 07:52 AM [id number]
--- NOTE | 2019-01-03 11:11 | ASMTCMCOM ---
CM Note CM Note Notes: Pt is a 88 yo F who presents with shortness of breath. Pt has a history of hypertension and glaucoma. Pt lives at [facility]. CM met with pt and her daughter, Belkys Baez who lives up in [place]. 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 CM spoke with OT who reports they are recommending pt be discharged to the [facility] at discharge. CM initated referral to [facility]. CM to follow. Plan: [facility] Date Signed: 01/03/2019 11:00 AM Electronically Signed By:CARMENCITA Correa
--- NOTE | 2019-01-03 13:14 | CPEKG ---
Test Reason : OPEN Blood Pressure : / mmHG Vent. Rate : 094 BPM Atrial Rate : 094 BPM P-R Int : 195 ms QRS Dur : 081 ms QT Int : 381 ms P-R-T Axes : 023 -27 119 degrees QTc Int : 477 ms Sinus rhythm Left atrial enlargement Left ventricular hypertrophy Inferior infarct, old Lateral leads are also involved Confirmed by Rush Wallis ([id number]) on 01/03/2019 1:13:47 PM Referred By: Lg Hsu Confirmed By:Rush Wallis
[2019-01-03] MEDS: ATORVASTATIN CALCIUM 40 MG TAB PO SCH (14:56)
--- NOTE | 2019-01-03 21:40 | GCON ---
[f rep st] CONSULTATION DATE OF CONSULTATION: 01/03/2019 Riay More is an 88-year-old lady who was at her apartment using the bathroom when visitors arriv ed unexpectedly. The patient had forgotten that she had planned to have a amish meeting hosted a t her home and had thought it had been changed to the following day. However, the visitors arrived t o have the meeting yesterday while the patient was still in the bathroom. She became very upset from the phone call, finished her bathroom business, and went to the back patio door via her walker. She was trying to remove a chuy which prevents the door from being opened but was frustrated by that proc ess and very anxious. She subsequently collapsed to the floor, was able to get up again with the use of a chair, and then tried to open the chuy again and then fell to the floor again. The visitors wer e outside and saw her falling, became very concerned, and went inside the building and were able to a ccess her apartment via that mechanism. The patient remained quite upset because of her fall. She w as taken to the emergency department for further evaluation. At the time of her arrival in the emerg ency department, she was noted to be upset, but otherwise relatively stable. Her blood pressure was 134/93 at that time with a heart rate of 114. She did not complain of chest pain or other clinical s ymptoms at the time. She was evaluated in the emergency department with an EKG which revealed normal sinus rhythm with left anterior fascicular block and ST-segment changes that were unlikely to be rel ated to an injury pattern, but more likely repolarization secondary to LVH, which was evident on that study, as well. The patient was evaluated by Dr. Dany Singer and ultimately it was felt the patien t should be admitted to the hospital for observation. The patient was felt to have had an episode of asymmetric pulmonary edema versus pneumonia under the care of Dr. Dany Singer. However, pneumonia was felt to be less likely to be a cause of the patient's symptoms given their acute onset related to this episode of social duress. PAST MEDICAL HISTORY: Significant for hypertension, macular degeneration, and CHF. FAMILY HISTORY: Noncontributory given her age. She is retired and single. Lives in the [facility]. She does not abuse alcohol or illicit drugs. The patient's troponin was trended overnight and was noted to be elevated at 0.694 and we were asked to see the patient in consultation because the elevation in her troponin and her clinical history, as well as evidence of heart failure . ALLERGIES: The patient is known to have allergy to bacitracin and morphine. MEDICATIONS: Include PreserVision, magnesium citrate, tumeric root extract, aspirin, eye drops to each eye, metoprolol succinate, and timolol eye drops. PHYSICAL EXAMINATION: GENERAL: At the time of my exam, the patient is alert and awake. VITAL SIGNS : Her blood pressure was 111/66, pulse was 86 and regular, respirations 16 and unlabored. NECK: Re vealed no JVD or carotid bruit. HEART: Reveals normal S1, S2 without S3, S4. She does have an S4 g allop sound. LUNGS: She also has, on lung exam, bilateral crackles consistent with pulmonary edema. ABDOMEN: Benign with positive bowel sounds. It is nondistended, nontender. EXTREMITIES: Warm, d ry, and well perfused without significant peripheral edema. LABORATORY STUDIES: Is as previously noted with a BUN and creatinine of 27 and 1.1. Sodium and pota ssium are 138 and 3.9. The PT/INR is 13.7 and 1.09. White count is 8.29, H and H is 14.3 and 43.3, down from 17.2 and 53.7. The patient's echocardiogram reveals subtle and new apical hypokinesis, which is of unclear significa nce. The patient definitely has at least moderate concentric left ventricular hypertrophy without dy namic outflow tract obstruction such as is seen in hypertrophic obstructive cardiomyopathy, but the p atient does have concentric hypertrophy. IMPRESSION/PLAN: The patient presents with acute on chronic diastolic heart failure, likely related to elevated blood pressure and heart rate when she was surprised by guests. She was also upset that she had forgotten about the meeting and misconstrued the time of the meeting to be on the following d ay, on Thursday, as opposed to Thursday. She was very upset and embarrassed about the situation and then had 2, what sound to be mechanical falls, related to bending over and trying to get the chuy out of t he way so that the door could be opened. The patient was admitted, found to have heart failure with pulmonary edema, which is likely related to a brief hypertensive episode along with the tachycardia, which was noted to be sinus. I think the patient should be monitored carefully. She does have a new subtle wall motion abnormality and the subsequent EKGs have revealed a small ST-segment depression i n II, III, and aVF, which could be consistent with ischemia. I have explained to the patient that th e patients at greatest risk for cardiac catheterization complications are patient, small female patie nts who are elderly and greater than 75 years of age and therefore I think we should adopt a conserva tive strategy, trend her troponins, and if those go down and the patient is able to be diuresed, I th ink the patient should be discharged without further workup. Copy requested to: Primary Care Physician /[id number]/MODL
[2019-01-03] MEDS: BIMATOPROST 0.01% 2.5 ML OPHT.BTL EACHEYE SCH (21:46)
[2019-01-04] MEDS ORDERED: POTASSIUM CL 10 MEQ TAB PO ONE ×2 (00:38→09:09)
--- NOTE | 2019-01-04 08:54 | HOSPPROG ---
Hospitalist Progress Note Assessment/Plan: Acute hypoxemic respiratory failure 2/2 acute HF - new onset. O2 needs improved from 15 LPM to 5 LPM. Reviewed cardiology notes, appreciate assistance. It's suspected she developed acute hypertension due to distress surrounding unexpected guests and this provoked pulmonary edema. Wt down 2 kg. -cont diuresis, decreased IV Lasix to BID -echo showed mild apical hypokinesis of uncertain significance, cath is deferred -cont ASA, BB, statin (LDL 125) Elevated trop - likely strain 2/2 above -trop peaked at 0.694, trending down Valvular heart disease - moderate MR, mild AR Hypertension - BP low this am, ntg held -cont low dose toprol Glaucoma - cont home meds Full code DVT PPLX - Lovenox Dispo - cont inpt, PT/OT, transfer to PCU Subjective: Pt feels better, breathing is improved. Denies CP. No fevers or cough. Taking po well, good uop with diuresis. Objective: Vital Signs Temp Pulse Resp BP Pulse Ox 36.7 C 87 18 125/70 H 94 01/04/19 08:00 01/04/19 08:00 01/04/19 08:00 01/04/19 08:00 01/04/19 08:00 Laboratory Results 01/03/19 04:50 01/04/19 05:50 01/03/19 01/04/19 01/05/19 05:59 05:59 05:59 Intake Total 604.3 Output Total 725 1225 Balance -725 -620.7 PT 13.7 SEC (12.0-15.0) 01/03/19 04:50 INR 1.09 (0.83-1.16) 01/03/19 04:50 - Physical Exam Constitutional: no apparent distress Eyes: PERRL Ears, Nose, Mouth, Throat: moist mucous membranes Cardiovascular: regular rate and rhythym, systolic murmur Respiratory: no respiratory distress, inspiratory crackles Gastrointestinal: normoactive bowel sounds, soft, non-tender abdomen Skin: warm Musculoskeletal: full muscle strength Neurologic: AAOx3 Psychiatric: interacting appropriately ICD10 Worksheet Patient Problems: Problems Problem Status Onset CHF exacerbation Acute Shortness of breath Acute Acute kidney injury Acute UTI (urinary tract infection) Acute
[2019-01-04] MEDS: ENOXAPARIN 30 MG/0.3 ML SYR SC SCH (09:32)
[2019-01-04] MEDS: FUROSEMIDE 40 MG/4 ML VIAL IVP SCH ×2 (09:35→16:27)
[2019-01-04] MEDS: METOPROLOL SUCCINATE XR 25 MG TAB PO SCH (09:36)
[2019-01-04] MEDS: PRESERVISION AREDS2 FORMULA EYE VIT 1 EACH PO SCH (09:36)
[2019-01-04] MEDS: ASPIRIN 81 MG CHEWABLE TAB PO SCH (09:37)
[2019-01-04] MEDS: CHOLECALCIFEROL VIT D3 1,000 UNITS TAB PO SCH (09:37)
[2019-01-04] MEDS: ATORVASTATIN CALCIUM 40 MG TAB PO SCH (09:37)
[2019-01-04] MEDS: LOSARTAN POTASSIUM 50 MG TAB PO SCH (09:37)
[2019-01-04] MEDS: TIMOLOL 0.5% 15 ML OPHT.BTL EACHEYE SCH (09:53)
[2019-01-04] MEDS: ACETAMINOPHEN 325 MG TAB PO PRN (12:48)
[2019-01-04] MEDS: BIMATOPROST 0.01% 2.5 ML OPHT.BTL EACHEYE SCH (22:32)
[2019-01-05] MEDS ORDERED: POTASSIUM CL 10 MEQ TAB PO ONE ×2 (07:28→07:30)
[2019-01-05] MEDS: CHOLECALCIFEROL VIT D3 1,000 UNITS TAB PO SCH (08:37)
[2019-01-05] MEDS: PRESERVISION AREDS2 FORMULA EYE VIT 1 EACH PO SCH (08:38)
[2019-01-05] MEDS: ACETAMINOPHEN 325 MG TAB PO PRN ×2 (08:38→21:00)
[2019-01-05] MEDS: ASPIRIN 81 MG CHEWABLE TAB PO SCH (08:39)
[2019-01-05] MEDS: ATORVASTATIN CALCIUM 40 MG TAB PO SCH (08:39)
[2019-01-05] MEDS: FUROSEMIDE 40 MG TAB PO SCH (08:40)
[2019-01-05] MEDS: ENOXAPARIN 30 MG/0.3 ML SYR SC SCH (08:41)
[2019-01-05] MEDS: LOSARTAN POTASSIUM 50 MG TAB PO SCH (08:43)
[2019-01-05] MEDS: METOPROLOL SUCCINATE XR 25 MG TAB PO SCH (08:59)
[2019-01-05] MEDS: TIMOLOL 0.5% 15 ML OPHT.BTL EACHEYE SCH (09:00)
--- NOTE | 2019-01-05 12:01 | ASMTCMCOM ---
CM Note CM Note Notes: 01/05/2019 Case Management Note Faxed updates to [facility] via [facility]. Confirmed pt has been accepted on the phone with Marisela. Case Management d/c poc: [facility] rehab when medically stable. Case Management to follow. Date Signed: 01/05/2019 12:00 PM Electronically Signed By:Minna Rodriguez RN
--- NOTE | 2019-01-05 17:39 | PDCARPN ---
Cardiology Progress Note Assessment/Plan: Assessment: 1. Patient likely has some form of ACS, but the patient does not want to have an invasive strategy at this time and I discussed with the hospitalist that I would sign off yesterday and forgot to enter same into the record... Please call us if the patient changes her mind or if we are needed. Plan: As above. 01/05/19 17:36 Reviewed/Discussed With: family, hospitalist Time Spent with Patient: greater than 25 minutes Time Spent with Patient: Greater than 25 minutes spent on this patients care, greater than 50% of time spent counseling, educating, and coordinating care regarding the above mentioned plan. Objective: Vital Signs (8 Hrs) Temp Pulse Resp BP Pulse Ox 01/05/19 15:58 36.8 C 66 18 96/60 L 95 01/05/19 12:00 37.3 C 64 20 95/51 L 93 Intake/Output (24 Hrs) 01/04/19 01/05/19 01/06/19 05:59 05:59 05:59 Intake Total 604.3 250 Output Total 1225 1350 400 Balance -620.7 -1100 -400 Intake: Oral (ml) 600 250 IV Infused (ml) 4.3 Nitroglycerin/Dextrose 4.3 250 ml @ Titrate IV CONT JUAN Rx#:[id number] Output: Urine (ml) 1225 1350 400 Bedpan 500 Bedside Commode 725 650 400 Toilet 700 Other: Weight 70.7 kg Intake Quantity Yes Sufficient Output Comment Toilet missed hat quite a bit Number of Voids Bedside Commode 2 2 Toilet 1 2 Number of Stools Bedside Commode 1 1 Result Diagrams: 01/03/19 04:50 01/05/19 04:02 Cardiac Labs: Cardiac Lab Results (72 Hrs) 01/04/19 01/03/19 01/03/19 07:30 15:00 08:30 Troponin I 0.113 H 0.350 H 0.694 H - Physical Exam Eyes: anicteric sclera Ears, Nose, Mouth, Throat: moist mucous membranes Cardiovascular: regular rate and rhythm, no rubs, no gallops Respiratory: reduced air movement, inspiratory crackles Neurologic: AAOx3, CN II-XII grossly intact Psychiatric: cooperative, interactive ICD10 Worksheet Patient Problems: Problems Problem Status Onset UTI (urinary tract infection) Acute Acute kidney injury Acute CHF exacerbation Acute Shortness of breath Acute
--- NOTE | 2019-01-05 19:42 | HOSPPROG ---
Hospitalist Progress Note Assessment/Plan: Acute hypoxemic respiratory failure 2/2 acute HF - new onset. O2 needs improved from 15 LPM to 3 LPM. Reviewed cardiology notes, appreciate assistance. It's suspected she developed acute hypertension due to distress surrounding unexpected guests and this provoked pulmonary edema. Wt down 2 kg. -change to po lasix -echo showed mild apical hypokinesis of uncertain significance, cath is deferred -cont ASA, BB, statin (LDL 125) Elevated trop - likely strain 2/2 above -trop peaked at 0.694, trended down Valvular heart disease - moderate MR, mild AR Hypertension - SBP 90's today -reduce losartan from 50 to 25 mg qd -cont low dose toprol Glaucoma - cont home meds Full code DVT PPLX - Lovenox Dispo - cont inpt, PT/OT, to SNF in 1-2 days Subjective: Pt feels better. Walking cautiously with walker. Still gets a bit SOB and endorses mild orthopnea. No CP. No fevers. Good uop. Objective: Vital Signs Temp Pulse Resp BP Pulse Ox 36.8 C 66 18 96/60 L 95 01/05/19 15:58 01/05/19 15:58 01/05/19 15:58 01/05/19 15:58 01/05/19 15:58 Laboratory Results 01/03/19 04:50 01/05/19 18:15 01/04/19 01/05/19 01/06/19 05:59 05:59 05:59 Intake Total 604.3 250 580 Output Total 1225 1350 1200 Balance -620.7 -1100 -620 PT 13.7 SEC (12.0-15.0) 01/03/19 04:50 INR 1.09 (0.83-1.16) 01/03/19 04:50 - Physical Exam Constitutional: no apparent distress Eyes: PERRL Ears, Nose, Mouth, Throat: moist mucous membranes Cardiovascular: regular rate and rhythym Respiratory: no respiratory distress, inspiratory crackles Gastrointestinal: normoactive bowel sounds, soft, non-tender abdomen Skin: warm Musculoskeletal: full muscle strength Neurologic: AAOx3 Psychiatric: interacting appropriately ICD10 Worksheet Patient Problems: Problems Problem Status Onset CHF exacerbation Acute Shortness of breath Acute Acute kidney injury Acute UTI (urinary tract infection) Acute
[2019-01-05] MEDS: BIMATOPROST 0.01% 2.5 ML OPHT.BTL EACHEYE SCH (20:58)
[2019-01-06] MEDS ORDERED: POTASSIUM CL 10 MEQ TAB PO ONE (00:18)
[2019-01-06] MEDS: ACETAMINOPHEN 325 MG TAB PO PRN (00:57)
[2019-01-06] MEDS ORDERED: LOSARTAN POTASSIUM 25 MG TAB PO SCH (09:00)
[2019-01-06] MEDS: CHOLECALCIFEROL VIT D3 1,000 UNITS TAB PO SCH (09:29)
[2019-01-06] MEDS: PRESERVISION AREDS2 FORMULA EYE VIT 1 EACH PO SCH (09:29)
[2019-01-06] MEDS: ENOXAPARIN 30 MG/0.3 ML SYR SC SCH (09:29)
[2019-01-06] MEDS: ASPIRIN 81 MG CHEWABLE TAB PO SCH (09:29)
[2019-01-06] MEDS: ATORVASTATIN CALCIUM 40 MG TAB PO SCH (09:29)
[2019-01-06] MEDS: METOPROLOL SUCCINATE XR 25 MG TAB PO SCH (09:29)
[2019-01-06] MEDS: FUROSEMIDE 40 MG TAB PO SCH (09:30)
[2019-01-06] MEDS: TIMOLOL 0.5% 15 ML OPHT.BTL EACHEYE SCH (09:31)
--- NOTE | 2019-01-06 09:39 | HOSPPROG ---
Hospitalist Progress Note Assessment/Plan: 88 yo F w acute CHF Acute hypoxemic respiratory failure 2/2 acute HF - new onset. O2 needs improved from 15 LPM to 3 LPM. Reviewed cardiology notes, appreciate assistance. It's suspected she developed acute hypertension due to distress surrounding unexpected guests and this provoked pulmonary edema. Wt down 2 kg. -change to po lasix -echo showed mild apical hypokinesis of uncertain significance, cath is deferred -cont ASA, BB, statin (LDL 125) outpt cardiology follow up Elevated trop - likely strain 2/2 above -trop peaked at 0.694, trended down Valvular heart disease - moderate MR, mild AR Hypertension - SBP 90's today -reduce losartan from 50 to 25 mg qd -cont low dose toprol Glaucoma - cont home meds Full code DVT PPLX - Lovenox Subjective: diuresed. feels better. trop trending down Objective: Vital Signs Temp Pulse Resp BP Pulse Ox 36.7 C 85 20 147/61 H 95 01/06/19 06:43 01/06/19 06:43 01/06/19 06:43 01/06/19 06:43 01/06/19 06:43 Laboratory Results 01/03/19 04:50 01/06/19 03:58 01/05/19 01/06/19 01/07/19 05:59 05:59 05:59 Intake Total 250 880 Output Total 1350 2200 275 Balance -1100 -1320 -275 PT 13.7 SEC (12.0-15.0) 01/03/19 04:50 INR 1.09 (0.83-1.16) 01/03/19 04:50 - Physical Exam Constitutional: no apparent distress, appears nourished Eyes: PERRL, anicteric sclera Ears, Nose, Mouth, Throat: moist mucous membranes, hearing normal Cardiovascular: regular rate and rhythym, no murmur, rub, or gallop Respiratory: no respiratory distress, other (bibasilar crackles. improve but dont resolve w cough), No no rales or rhonchi Gastrointestinal: normoactive bowel sounds, soft, non-tender abdomen Genitourinary: no bladder fullness, No cameron in urethra Skin: warm, normal color Musculoskeletal: full muscle strength ICD10 Worksheet Patient Problems: Problems Problem Status Onset CHF exacerbation Acute Shortness of breath Acute Acute kidney injury Acute UTI (urinary tract infection) Acute
--- NOTE | 2019-01-06 09:44 | PDIAF ---
- Diagnosis Diagnosis: sCHF Code Status: Full Code - Medication Management Discharge Medications: electronically signed and located in the Home Medication List. - Orders Services needed: Registered Nurse, Certified Urgent Care, Master Adjunct Sociology Professor , Physical Therapy, Occupational Therapy Diet Texture: Regular Texture Diet, Thin Liquids - Labs/Radiology BMP Date: 01/10/19 (diuretic therapy; results to Araseli Grande MD) - Follow Up Care Current Providers and Referrals: Patient,NotPresent [Unknown] - As per Instructions
--- NOTE | 2019-01-06 10:05 | GDS ---
[f rep st] DISCHARGE SUMMARY DISCHARGE DIAGNOSES: 1. Acute systolic heart failure with new apical akinesis. 2. Volume overload. 3. Acute hypoxemic respiratory failure. 4. Hypertension. 5. Hyperlipidemia. 6. Glaucoma. Please see admission history and physical by Dr. Lg Hsu. The patient presented with acute on set shortness of breath. She had a chest x-ray showing bilateral lower lung field airspace disease. She had JVD and a positive troponin. There was discussion whether or not this represented pneumonia versus heart failure, but I think ultimately in the ER she responded well to nitroglycerin drips and diuretics. It was treated as heart failure. Subsequently, echocardiogram revealed thickened server developer ior wall and septum, which was not new, as well as subtle apical akinesis. Her ejection fraction is 61%. This is consistent with a mild systolic heart failure, new finding. She is already on a long-a cting beta latosha and an angiotensin receptor latosha. She was diuresed negative a couple kg with i mprovement in her symptoms and lung exam and hypoxemia. Seen by PT and OT, who felt she warranted a little bit of rehabilitation in SNF, which she is discharged to today. Cardiology has seen her. They will see her in followup. She declined an angiogram during this stay. I have written for labs to go to her primary care physician, Dr. Araseli Grande next Thursday, which is the 10 23. New medicines are Lasix 20 mg daily and new doses are losartan has gone from 50 mg daily to 25 mg garcía ly. /[id number]/MODL
--- NOTE | 2019-01-06 10:27 | ASMTLACE ---
LACE Length of stay for Answers: 3 days current admission Acuity / Level of Answers: Yes Care: Did the patient have an inpatient admission? Comorbidities - select Answers: Congestive heart failure all that apply Other Notes: HTN # of Emergency department Answers: 1-2 visits in the last 6 months Score: 10 Date Signed: 01/06/2019 10:26 AM Electronically Signed By:Minna Rodriguez RN
[2019-01-06 11:14] VITALS: BP 154/54
--- NOTE | 2019-01-06 11:15 | ASMTDCNOTE ---
Case Management Discharge Discharge Order Complete? Answers: Yes Patient to Obtain Answers: Other Notes: Jacquie Cyr [facility] Medications Transportation Arranged Answers: Other Notes: [facility] w/c at directi on of Marisela from Transport will Pick (Date 01/06/2019 12:15 PM & Time) Faxed Final Orders Answers: Yes Notes: to Jacquie Cyr [facility] Agency/Facility Transfer Answers: Yes Notes: to jacquiecameron Cyr [facility] Report Printed & Faxed to Receiving Agency Discharge Comments Notes: 01/06/2019 Case Management Note Faxed final d/c orders to Jacquie Cyr. Discussed with Marisela on the phone. Arranged transport with [facility] at request of Marisela from Jacquie Cyr. RN to call report. Date Signed: 01/06/2019 11:15 AM Electronically Signed By:Minna Rodriguez RN
--- NOTE | 2019-01-06 11:16 | ASDISCHSUM ---
Discharge Information Plan Status:SNF Medically Cleared to Leave:01/06/2019 Discharge Date:01/06/2019 CM D/C Disposition:[facility] Facility ADT D/C Disposition: Projected Discharge Date:01/05/2019 11:00 AM Transportation at D/C:Wheelchair Van Discharge Delay Reason: Follow-Up Date:01/05/2019 11:00 AM Discharge Slot: Final Diagnosis: Placement Information Referral Type:*Retirement/SNF Referral ID:[id number] Provider Name:Jacquie Cyr [facility] Address 1:[address] Address 2: City:[place] Selection Factors: State:[place] Patient Contact Information Contact Name:OVI Relationship:Daughter Address:[address] City:[place] Alternate Phone: State/Zip Code:[place] [address] Email: Financial Information Financial Class:Medicare Advantage Plans Primary Plan Desc:[employer] MED[employer]ARE ADV Primary Plan Number:[id number] Secondary Plan Desc: Secondary Plan Number: Assessment Information [facility] Progress Note CM Note CM Note Notes: Pt is a 88 yo F who presents with shortness of breath. Pt has a history of hypertension and glaucoma. Pt lives at [facility]. CM met with pt and her daughter, Belkys Baez who lives up in [place]. 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 HECTOR spoke with OT who reports they are recommending pt be discharged to the [facility] at discharge. CM initated referral to [facility]. CM to follow. Plan: [facility] Date Signed: 01/03/2019 11:00 AM Electronically Signed By:CARMENCITA Correa LACE LACE Length of stay for Answers: 3 days current admission Acuity / Level of Answers: Yes Care: Did the patient have an inpatient admission? Comorbidities - select Answers: Congestive heart failure all that apply Other Notes: HTN # of Emergency department Answers: 1-2 visits in the last 6 months Score: 10 Date Signed: 01/06/2019 10:26 AM Electronically Signed By:Minna Rodriguez RN [facility] CM Progress Note CM Note CM Note Notes: 01/05/2019 Case Management Note Faxed updates to Jacquie Cyr [facility] via [employer]. Confirmed pt has been accepted on the phone with Marisela. Case Management d/c poc: Jacquie Cyr [facility] rehab when medically stable. Case Management to follow. Date Signed: 01/05/2019 12:00 PM Electronically Signed By:Minna Rodriguez RN Case Management Discharge Plan Note Case Management Discharge Discharge Order Complete? Answers: Yes Patient to Obtain Answers: Other Notes: Jacquie Cyr [facility] Medications Transportation Arranged Answers: Other Notes: [facility] w/c at directi on of Marisela from Transport will Pick (Date 01/06/2019 12:15 PM & Time) Faxed Final Orders Answers: Yes Notes: to Jacquie Cyr [facility] Agency/Facility Transfer Answers: Yes Notes: to jacquie Cyr [facility] Report Printed & Faxed to Receiving Agency Discharge Comments Notes: 01/06/2019 Case Management Note Faxed final d/c orders to Jacquie C[facility]. Discussed with Marisela on the phone. Arranged transport with [facility] at request of Marisela from Jacquie Nassar RN to call report. Date Signed: 01/06/2019 11:15 AM Electronically Signed By:Minna Rodriguez RN Intervention Information Intervention Type:*IM-Signed Date of Service:01/06/2019 10:11 AM Patient Type:Inpatient Staff Member:Malaika Romano Hours: Discipline: Severity: Comment:
== END 2019-01-06 12:34 | DRG 291 ==
LOC: EDUNIT# → OBSVTOIN 21:00 → F2N 21:42 → F2W 01-04 16:41
PROVIDERS: ADMIT Internal Medicine; ATTEND Internal Medicine
DX: I11.0 Hypertensive heart disease with heart failure (principal); I50.21 Acute systolic (congestive) heart failure; J96.01 Acute respiratory failure with hypoxia; N17.9 Acute kidney failure, unspecified; E78.5 Hyperlipidemia, unspecified; H40.9 Unspecified glaucoma; I08.0 Rheumatic disorders of both mitral and aortic valves
CPT/HCPCS: 84484-ER; 92610-GN; 96365; 96366; 97116-GP; 97161-GP; 97166-GO; 97530-GO; 97530-GP; 97535-GO; J1650; J1940